=== PATIENT | female | born 1975 | race Caucasian/White ===

== ENCOUNTER 2017-08-16 10:11 | Emergency (ER) | payer MEDICAID ==
[~2017-08-16] VITALS: Ht 170.2 cm; Wt 66.0 kg
[~2017-08-16 10:11] MED LIST: BACT800T5 PO; BIRTH CONTROL PO; PYRI200T4 PO
[2017-08-16 10:15] VITALS: BP 105/68; PULSE 82; RESP 18; TEMP 97.8; O2SAT 98
[2017-08-16] MEDS ORDERED: SODIUM CHLOR 0.9% 1000 ML INJ 1,000 ML IV SCH (10:29)
[2017-08-16] MEDS ORDERED: METOCLOPRAMIDE HCL 10 MG/2 ML VIAL IV PUSH ONE (10:30)
[2017-08-16] MEDS ORDERED: SODIUM CHLORIDE 0.9% FLUSH 10 ML FLUSH IV FLUSH PRN (10:30)
--- NOTE | 2017-08-16 10:34 | PD ---
HPI Chief Complaint: GI Complaint Time Seen by Provider: 10:28 Travel History International Travel<30 days: No Contact w/Intl Traveler<30days: No Traveled to known affect area: No History of Present Illness HPI 42-year-old female presents to the emergency department for evaluation nausea, vomiting, diarrhea, right lower quadrant abdominal pain that started on , 2 days ago. Patient reports associated chills and dizziness. She also reports intermittent headaches. She denies any chest pain or shortness of breath. No syncope or falls. Patient denies any previous abdominal surgeries. She states the pain is 3/10, cramping and aching to the right lower quadrant at this time. She denies any abnormal vaginal discharge or risk of STDs. She denies any urinary symptoms. Patient has no chronic medical problems and takes no prescribed medications. Patient states that her child's father had similar symptoms earlier in the week, but they resolved within 24 hours and her symptoms are worsening. She denies any exacerbating or alleviating factors. Moderate severity. PFSH Past Medical History Diminished Hearing: No Immunizations Current: Yes ?: Not LMP: 2 weeks ago Past Surgical History Section: Yes (X1) Gynecologic Surgery: Yes (UNKNOWN LAP ) Social History Alcohol Use: Yes (SOCIAL) Tobacco Use: No Substance Use: No Allergies-Medications (Allergen,Severity, Reaction): Coded Allergies: No Known Allergies (Verified Adverse Reaction, Unknown, 08/16/17) Reported Meds & Prescriptions Reported Meds & Active Scripts Active No Active Prescriptions or Reported Medications Review of Systems Except as stated in HPI: all other systems reviewed are Neg Physical Exam Narrative GENERAL: Well-nourished, well-developed female patient, afebrile. SKIN: Focused skin assessment warm/dry. HEAD: Normocephalic. Atraumatic. ENT: Mucosa pink and moist. No erythema or exudates. No uvular edema. No uvular , palatal, or tonsillar deviation. Airway patent. Nasal turbinates appear normal without nasal blood, purulent drainage or septal hematoma. Bilateral tympanic membranes clear without erythema or perforation. EYES: No scleral icterus. No injection or drainage. NECK: Supple, trachea midline. No JVD or lymphadenopathy. CARDIOVASCULAR: Regular rate and rhythm without murmurs, gallops, or rubs. RESPIRATORY: Breath sounds equal bilaterally. No accessory muscle use. Lung sounds are clear to auscultation throughout. GASTROINTESTINAL: Abdomen soft and nondistended. Patient grimaces to palpation over the right lower quadrant. No other tenderness to palpation. No rebound tenderness. MUSCULOSKELETAL: No cyanosis, or edema. BACK: Nontender without obvious deformity. No CVA tenderness. Data Data Last Documented VS Vital Signs Date Time Temp Pulse Resp B/P (MAP) Pulse Ox O2 Delivery O2 Flow Rate FiO2 08/16/17 10:49 98 Room Air 08/16/17 10:15 97.8 82 18 105/68 (80) Orders Orders Complete Blood Count With Diff (08/16/17 10:29) Comprehensive Metabolic Panel (08/16/17 10:29) Lipase (08/16/17 10:29) Urinalysis - C+S If Indicated (08/16/17 10:29) Ct Abd/Pel W Iv Contrast(Rout) (08/16/17 10:29) Iv Access Insert/Monitor (08/16/17 10:29) Ecg Monitoring (08/16/17 10:29) Oximetry (08/16/17 10:29) Sodium Chlor 0.9% 1000 Ml Inj (Ns 1000 M (08/16/17 10:29) Sodium Chloride 0.9% Flush (Ns Flush) (08/16/17 10:30) Ed Urine Pregnancytest Poc (08/16/17 10:29) Metoclopramide Inj (Reglan Inj) (08/16/17 10:30) Urine Culture (08/16/17 10:40) Iohexol 350 Inj (Omnipaque 350 Inj) (08/16/17 11:35) Loperamide (Imodium) (08/16/17 12:30) Labs Laboratory Tests Test 08/16/17 10:40 08/16/17 10:42 Urine Collection Type CLEAN CATCH Urine Color YELLOW Urine Turbidity CLOUDY Urine pH 6.0 Urine Specific [place] 1.025 Urine Protein TRACE mg/dL Urine Glucose (UA) NEG mg/dL Urine Ketones 40 mg/dL Urine Occult Blood SMALL Urine Nitrite NEG Urine Bilirubin NEG Urine Urobilinogen 0.2 MG/DL Urine Leukocyte Esterase NEG Urine RBC 4-9 /hpf Urine WBC 6-8 /hpf Urine WBC Clumps OCC Urine Squamous Epithelial Cells > 8 /hpf Urine Amorphous Sediment FEW Urine Bacteria MOD /hpf Microscopic Urinalysis Comment CULTURE INDICATED Urine Collection Time 1040 White Blood Count 7.4 TH/MM3 Red Blood Count 4.48 MIL/MM3 Hemoglobin 14.1 GM/DL Hematocrit 41.2 % Mean Corpuscular Volume 92.0 FL Mean Corpuscular Hemoglobin 31.5 PG Mean Corpuscular Hemoglobin Concent 34.2 % Red Cell Distribution Width 12.7 % Platelet Count 227 TH/MM3 Mean Platelet Volume 8.8 FL Neutrophils (%) (Auto) 65.5 % Lymphocytes (%) (Auto) 22.4 % Monocytes (%) (Auto) 9.7 % Eosinophils (%) (Auto) 1.8 % Basophils (%) (Auto) 0.6 % Neutrophils # (Auto) 4.9 TH/MM3 Lymphocytes # (Auto) 1.6 TH/MM3 Monocytes # (Auto) 0.7 TH/MM3 Eosinophils # (Auto) 0.1 TH/MM3 Basophils # (Auto) 0.0 TH/MM3 CBC Comment DIFF FINAL Differential Comment Blood Urea Nitrogen 9 MG/DL Creatinine 0.73 MG/DL Random Glucose 95 MG/DL Total Protein 7.5 GM/DL Albumin 3.3 GM/DL Calcium Level 8.7 MG/DL Alkaline Phosphatase 85 U/L Aspartate Amino Transf (AST/SGOT) 20 U/L Alanine Aminotransferase (ALT/SGPT) 25 U/L Total Bilirubin 0.4 MG/DL Sodium Level 140 MEQ/L Potassium Level 3.5 MEQ/L Chloride Level 106 MEQ/L Carbon Dioxide Level 25.3 MEQ/L Anion Gap 9 MEQ/L Estimat Glomerular Filtration Rate 88 ML/MIN Lipase 83 U/L [facility] Medical Decision Making Medical Screen Exam Complete: Yes Emergency Medical Condition: Yes Medical Record Reviewed: Yes Interpretation(s) Last Impressions Abdomen/Pelvis CT 08/16/17 1029 Signed Impressions: CONCLUSION: 1. No acute inflammatory process Differential Diagnosis Viral gastroenteritis versus viral syndrome versus UTI versus appendicitis versus ovarian cyst Narrative Course 42-year-old female presents to the emergency department for evaluation nausea, vomiting, diarrhea, right lower quadrant abdominal pain for 2 days. IV access established. CBC, CMP, lipase, UA, urine test, CT abdomen/pelvis with IV contrast are ordered and pending. Patient is given normal saline 1 L IV bolus, Reglan 10 mg IV. CBC shows no acute abnormality, monocytes is slightly elevated at 9.7. CMP shows no acute abnormality. Lipase is 83. UA shows 6 8 WBC, occasional WBC clumps, moderate bacteria. UPT is negative. CT abdomen/pelvis shows no acute inflammatory process. Patient stable for discharge home. Patient will be given Imodium before discharge. She will be discharged prescription for Zofran, Imodium, Macrobid. She is encouraged to drink plenty of fluids, bland diet, follow with her primary care physician. She is return here for any acute worsening of symptoms. The patient was discharged in stable condition with instructions, including return instructions and follow up instructions. Diagnosis Primary Impression: Viral gastroenteritis Additional Impression: UTI (urinary tract infection) Qualified Codes: N30.01 - Acute cystitis with hematuria Referrals: Primary Care Physician call for appointment Patient Instructions: Gastroenteritis (ED), General Instructions, Urinary Tract Infection in Women (ED) Departure Forms: Tests/Procedures, Work Release Enter return to work date: Aug 18, 2017 Additional Instructions: Take Zofran as directed as needed for nausea/vomiting. Take Imodium as directed as needed for diarrhea. Take Macrobid as directed until gone for UTI. Drink plenty of fluids. Carson diet. Follow-up with a primary care physician. Return to the emergency department for any acute worsening of symptoms. Med/Other Pt SpecificInfo: Prescription(s) given Scripts Nitrofurantoin Monohydrate Macrocrystals (Macrobid) 100 Mg Cap 100 MG PO BID for Infection for 7 Days, #14 CAP 0 Refills Prov: Zenobia Martins 08/16/17 Loperamide (Imodium A-D) 2 Mg Capsule 2 MG PO Q6H Y for DIARRHEA, #30 CAP 0 Refills Prov: Zenobia Martins 08/16/17 Ondansetron Odt (Ondansetron Odt) 4 Mg Tab 4 MG SL Q6HR Y for Nausea/Vomiting, #12 TAB 0 Refills Prov: Zenobia Martins 08/16/17 Disposition: DISCHARGE HOME Condition: Stable Zenobia Martins Aug 16, 2017 10:34
[2017-08-16 10:49] VITALS: O2SAT 98
[2017-08-16 11:07] LABS: BLOOD, URINE SMALL (NEG); GLUCOSE,URINE NEG (NEG); KETONE, URINE 40 mg/dL (NEG); NITRITE,URINE NEG (NEG); URINE COLOR YELLOW (YELLW/STRAW); URINE LEUKOCYTE ESTERASE NEG (NEG)
[2017-08-16 11:08] LABS: AUTOMATED NEUTROPHIL # 4.9 TH/MM3 (1.8-7.7); BASOPHIL % 0.6 % (0.0-2.0); EOSINOPHIL # 0.1 TH/MM3 (0-0.4); EOSINOPHIL % 1.8 % (0.0-4.0); HEMATOCRIT 41.2 % (35.0-46.0); HEMOGLOBIN 14.1 GM/DL (11.6-15.3); LYMPH % 22.4 % (9.0-44.0); LYMPHOCYTE # 1.6 TH/MM3 (1.0-4.8); MEAN CORPUSCULAR HEMOGLOBIN 31.5 PG (27.0-34.0); MEAN CORPUSCULAR HGB CONC 34.2 % (32.0-36.0); MEAN PLATELET VOLUME 8.8 FL (7.0-11.0); MONO % 9.7 % (0.0-8.0); MONOCYTE # 0.7 TH/MM3 (0-0.9); NEUT % 65.5 % (16.0-70.0); PLATELET COUNT 227 TH/MM3 (150-450); RED BLOOD COUNT 4.48 MIL/MM3 (4.00-5.30); RED CELL DISTRIBUTION WIDTH 12.7 % (11.6-17.2); WHITE BLOOD COUNT 7.4 TH/MM3 (4.0-11.0)
[2017-08-16 11:11] LABS: BILIRUBIN, URINE NEG (NEG)
[2017-08-16 11:12] LABS: CHLORIDE 106 MEQ/L (98-107); SODIUM (NA) 140 MEQ/L (136-145)
[2017-08-16 11:13] LABS: BACTERIA, URINE MOD /hpf; SQUAMOUS EPITHELIAL CELL URINE > 8 /hpf (0-5)
[2017-08-16 11:14] LABS: AMORPHOUS SEDIMENT, URINE FEW; WHITE BLOOD CELL CLUMPS OCC
[2017-08-16 11:17] LABS: CALCIUM 8.7 MG/DL (8.5-10.1)
[2017-08-16 11:18] LABS: ALBUMIN 3.3 GM/DL (3.4-5.0); BICARBONATE 25.3 MEQ/L (21.0-32.0); BLOOD UREA NITROGEN 9 MG/DL (7-18); GLUCOSE,RANDOM 95 MG/DL (74-106)
[2017-08-16 11:21] LABS: ALT (GPT) 25 U/L (10-53); AST (GOT) 20 U/L (15-37); CREATININE 0.73 MG/DL (0.50-1.00); GLOMERULAR FILTRATION RATE 88 ML/MIN (>89)
[2017-08-16 11:22] LABS: TOTAL BILIRUBIN ADULT 0.4 MG/DL (0.2-1.0); TOTAL PROTEIN 7.5 GM/DL (6.4-8.2)
[2017-08-16 11:23] LABS: ALKALINE PHOSPHATASE 85 U/L (45-117)
[2017-08-16] MEDS ORDERED: IOHEXOL 350 MG/ML 10 ML VIAL (for RAD DIAG) IVCONTRAST ONE (11:35)
--- NOTE | 2017-08-16 12:09 | RADRPT ---
EXAM DATE: 08/16/2017 11:39 AM EDT AGE/SEX: 42 years / Female INDICATIONS: Nausea, vomiting and diarrhea for two days. CLINICAL DATA: This is the patient's initial encounter. Patient reports that signs and symptoms have been present for 2 days and indicates a pain score of 0/10. MEDICAL/SURGICAL HISTORY: None. section. ORAL CONTRAST: No oral contrast ingested. RADIATION DOSE: 7.88 CTDI (mGy) COMPARISON: No prior exams available for comparison. TECHNIQUE: Multiple contiguous axial images were obtained through the abdomen and pelvis following b olus infusion of 95 ml Omnipaque 350 (iohexol) nonionic water-soluble contrast as a single exam dos e. No oral contrast ingested. Using automated exposure control and adjustment of the mA and/or kV ac cording to patient size, radiation dose was kept as low as reasonably achievable to obtain optimal di agnostic quality images. DICOM format image data is available electronically for review and comparis on. FINDINGS: Lower Lungs: 6 Liver: The liver has a homogeneous density without space-occupying lesion. There is no dilation of th e biliary tree. Spleen: Homogeneous density without enlargement. Pancreas: Unremarkable without mass or calcification. Kidneys: Normal in size and shape. No evidence of mass or hydronephrosis. Adrenal Glands: Unremarkable. Aorta: The aorta and proximal iliac vessels are grossly unremarkable without aneurysmal dilation. Bowel/Mesentery: The bowel loops are grossly unremarkable. The cecum and sigmoid colon have a normal configuration. Abdominal Wall: Intact. Retroperitoneum: No evidence of adenopathy in the retrocrural, para-aortic, or deep pelvic regions. Bladder: Contours are smooth. Reproductive Organs: No abnormal masses or calcifications seen. Inguinal: The inguinal region is unremarkable without evidence of adenopathy. Bony Structures: Unremarkable. CONCLUSION: 1. No acute inflammatory process Electronically signed by: Domenic Nash MD 08/16/2017 12:08 PM EDT
[2017-08-16] MEDS ORDERED: ONDA4TAB7 SL (12:17)
[2017-08-16] MEDS ORDERED: LOPE-1 PO (12:17)
[2017-08-16] MEDS ORDERED: MACR100C2 PO (12:17)
[2017-08-16] MEDS ORDERED: LOPERAMIDE HCL 2 MG CAP PO ONE (12:30)
[2017-08-16 12:42] VITALS: BP 106/67
== END 2017-08-16 12:43 | disposition home or self-care (01) ==
LOC: PHED 10:11
DX: A08.4 Viral intestinal infection, unspecified (principal); N30.01 Acute cystitis with hematuria; B96.89 Other specified bacterial agents as the cause of diseases classified elsewhere; R42 Dizziness and giddiness
CPT/HCPCS: 74177; 80053; 81001; 83690; 84703; 85025; 87086; 96361; 96374; 99284; J2765; J7030; Q9967